=== PATIENT | female | born 1960 | race Caucasian/White ===

== ENCOUNTER 2025-01-09 08:10 | Day surgery (SDC) | payer OTHER ==
[~2025-01-09] VITALS: Ht 157.5 cm; Wt 84.1 kg
[2025-01-09] MEDS: SODIUM CHLORIDE 0.9% 1,000 ML IV ONE (09:02)
[2025-01-09] MEDS ORDERED: PROPOFOL 1% 20 ML VIAL IVP ONE (12:00)
[2025-01-09] MEDS ORDERED: LIDOCAINE/PF 2% 5 ML VIAL ONE (12:00)
== END 2025-01-09 12:20 | disposition home or self-care (01) ==
LOC: SURGERY 08:10
PROVIDERS: ATTEND Internal Medicine
DX: D3A.8 Other benign neuroendocrine tumors (principal); Z79.899 Other long term (current) drug therapy; Z98.890 Other specified postprocedural states
CPT/HCPCS: 45330; J2704; J3490